=== PATIENT | female | born 1990 | race Two or more races ===

== ENCOUNTER 2018-01-10 20:04 | Emergency (ER) | payer OTHER ==
[~2018-01-10] VITALS: Ht 170.2 cm; Wt 77.1 kg
== END 2018-01-10 22:00 | disposition home or self-care (01) ==
LOC: ER 20:04
DX: O23.41 Unspecified infection of urinary tract in pregnancy, first trimester (principal); Z34.01 Encounter for supervision of normal first pregnancy, first trimester

== ENCOUNTER 2018-11-06 11:35 | Emergency (ER) | payer OTHER ==
[~2018-11-06] VITALS: Ht 170.2 cm; Wt 77.1 kg
== END 2018-11-06 17:33 | disposition home or self-care (01) ==
LOC: ER 11:35
DX: K29.70 Gastritis, unspecified, without bleeding (principal)

== ENCOUNTER 2019-01-19 09:08 | Emergency (ER) | payer OTHER ==
[~2019-01-19] VITALS: Ht 170.2 cm; Wt 73.0 kg
== END 2019-01-19 10:21 | disposition home or self-care (01) ==
LOC: ER 09:08
DX: M62.838 Other muscle spasm (principal)

== ENCOUNTER 2019-04-12 06:06 | Emergency (ER) | payer OTHER ==
[~2019-04-12] VITALS: Ht 170.2 cm; Wt 72.6 kg
== END 2019-04-12 09:59 | disposition home or self-care (01) ==
LOC: ER 06:06
DX: K52.89 Other specified noninfective gastroenteritis and colitis (principal); R10.13 Epigastric pain; E86.0 Dehydration; R11.11 Vomiting without nausea; R05 Cough

== ENCOUNTER 2020-09-09 11:09 | Emergency (ER) | payer OTHER ==
[~2020-09-09] VITALS: Ht 170.2 cm; Wt 88.0 kg
[2020-09-09] MEDS ORDERED: AMOX-CLAV 875-1 EACH PO (13:29)
[2020-09-09] MEDS ORDERED: KETO10TA2 PO (13:29)
[2020-09-10] MEDS ORDERED: VOLTAREN-XR100 MG PO (16:15)
[2020-09-10] MEDS ORDERED: CLINDAMYCIN HC300 MG PO (16:15)
[2020-09-10] MEDS ORDERED: INTESTINEX680 M1 PO (16:15)
== END 2020-09-09 13:34 | disposition home or self-care (01) ==
LOC: ER 11:09
DX: J03.90 Acute tonsillitis, unspecified (principal); Z20.822 Contact with and (suspected) exposure to COVID-19

== ENCOUNTER 2020-09-10 14:19 | Emergency (ER) | payer OTHER ==
[~2020-09-10] VITALS: Ht 170.2 cm; Wt 88.0 kg
[~2020-09-10 14:19] MED LIST: AMOX-CLAV 875-1 EACH PO; KETO10TA2 PO
[2020-09-10] MEDS ORDERED: CLINDAMYCIN HC300 MG PO (16:15)
[2020-09-10] MEDS ORDERED: INTESTINEX680 M1 PO (16:15)
[2020-09-10] MEDS ORDERED: VOLTAREN-XR100 MG PO (16:15)
== END 2020-09-10 16:44 ==
LOC: ER 14:19
DX: J03.80 Acute tonsillitis due to other specified organisms (principal); T78.49XA Other allergy, initial encounter; T36.0X5A Adverse effect of penicillins, initial encounter; Y92.89 Other specified places as the place of occurrence of the external cause; X58.XXXA Exposure to other specified factors, initial encounter

== ENCOUNTER 2021-11-28 10:51 | Emergency (ER) | payer OTHER ==
[~2021-11-28] VITALS: Ht 170.2 cm; Wt 86.2 kg
[~2021-11-28 10:51] MED LIST changes: +CLINDAMYCIN HC300 MG PO; +INTESTINEX680 M1 PO; +VOLTAREN-XR100 MG PO
== END 2021-11-28 17:37 | disposition home or self-care (01) ==
LOC: ER 10:51
DX: J40 Bronchitis, not specified as acute or chronic (principal)

== ENCOUNTER 2023-04-29 08:47 | Emergency (ER) | payer OTHER ==
[~2023-04-29] VITALS: Ht 170.2 cm; Wt 90.7 kg
[2023-04-29 11:02] LABS: HEMATOCRIT 40.9 % (36.0-45.00); HEMOGLOBIN 13.3 g/dL (12.0-15.00); MEAN CELL VOLUME 83.6 fL (80.00-100.00); MEAN CORPUSCULAR HEMOGLOBIN 27.3 pg (27.00-32.0); MEAN CORPUSCULAR HGB CONC 32.6 g/dl (32.0-36.0); PLATELET COUNT 245 K/uL (150-450); RED BLOOD COUNT 4.89 M/uL (4.00-6.00); RED CELL DISTRIBUTION WIDTH 12.6 % (11.5-14.5)
== END 2023-04-29 15:57 | disposition home or self-care (01) ==
LOC: ER 08:47
PROVIDERS: Emergency Medicine
DX: R68.84 Jaw pain (principal); K08.89 Other specified disorders of teeth and supporting structures; R53.81 Other malaise; Z20.822 Contact with and (suspected) exposure to COVID-19